=== PATIENT | female | born 1945 | race Caucasian/White ===

== ENCOUNTER → 2019-01-14 15:55 | Outpatient (CLI) | payer MEDICARE, OTHER, SELFPAY ==
--- NOTE | 2019-01-14 16:01 | CT_ITS ---
STUDY: CT ABDOMEN AND PELVIS WITH CONTRAST REASON FOR EXAM: Female, 73 years old. Hematuria. History of renal cysts. RADIATION DOSAGE (If Supplied By Facility): CTDIvol = ( 18.02 ) mGy, DLP = ( 1397.77 ) mGycm TECHNIQUE: Transaxial images were obtained from the dome of the diaphragm to the symphysis pubis without oral contrast. 100 IV Isovue 300 was administered. Sagittal and coronal images were reconstructed. Individualized dose optimization techniques were used for this CT. COMPARISON: None. FINDINGS: The visualized lung bases are unremarkable. The visualized portions of the heart are within normal limits. 6 mm subcapsular low density in the anterior superior left lobe of the liver (series 2 image 18, series 6 on image 24) is likely a cyst. The patent portal vein diameter is 10.5 mm. Normal gallbladder and extrahepatic biliary system. Normal spleen. Normal pancreas. Normal bilateral adrenal glands. Mildly exophytic 8 mm cortical cyst seen of the medial posterior margin of the midpole of the right kidney, and there is a 3.5 mm cortical cyst in the posterolateral lower pole. Rounded, hypodense 4 mm cortical cyst seen in the upper pole on series 6 on image 72. There is suggestion of a 3 mm cortical cyst at the lateral midpole on image 41. There is an exophytic 7.2 x 5.4 x 5.2 cm cortical cyst at the lower pole of the left kidney. Just above this is a well-defined 1.5 x 0.95 x 1.5 cm cortical cyst in the posterior mid to lower pole. No hydronephrosis. There is a moderate size hiatal hernia composed mostly of the fundus of the stomach. Normal small intestine. The cecum resides in the midline of the low abdomen/pelvis. Possible short, 9 mm gas distended, thin-walled appendix is identified in series 2 image 74, series 6 on image 42. Otherwise, normal colon. There is mild atherosclerotic calcification of the abdominal aorta and proximal iliac arteries, without a demonstrated aneurysm. Normal inferior vena cava. Normal retroperitoneum. Nearly empty urinary bladder. There is atrophy of the uterus. There is a small umbilical hernia containing fat. Defect in the fascia lateral to the left rectus muscle below the level of the iliac crests allows for a 5.15 x 3.4 x 1.25 cm hernia of fat and minimal fluid. There are multilevel degenerative changes of the visualized lumbar spine. The patient is positioned with an 11.5 degree dextroscoliosis centered at L3. Benign-appearing subcentimeter sclerotic density in the right superior pubic ramus. CT/Abdomen/Pelvis WITH Contrast IMPRESSION: 1. Bilateral renal cortical cysts. Allowing that the urinary bladder is nearly empty, no distinct source of hematuria is demonstrated. 2. Probable 6 mm cyst in the anterior superior left lobe of the liver. 3. Moderate size hiatal hernia. 4. Incidental note that the cecum and probable short, gas-filled appendix reside in the midline low abdomen. The bowel is otherwise unremarkable without sign of obstruction or suspicious mural thickening. 5. Mild aortoiliac atherosclerotic calcific plaquing. No demonstrated aneurysm. 6. Small, fat-containing umbilical hernia. Defect in the fascia lateral to the lower left rectus abdominous muscle also allows for a small hernia of fat and minimal fluid. Electronically Signed: Osman Anand MD at 12:53 EDT , Service support ,
[2019-01-14 16:15] LABS: CREATININE FINGERSTICK 0.8 mg/dL (0.55-1.02); EGFR FINGERSTICK > 60.0000 mL/min (>60)
== END ==
PROVIDERS: Family Provider Internal Medicine; PCP Internal Medicine; Referring Provider Nurse Practitioner Adult Health; Visit Provider Nurse Practitioner Adult Health
DX: Z01.812 Encounter for preprocedural laboratory examination (principal); R31.9 Hematuria, unspecified; N28.1 Cyst of kidney, acquired
CPT/HCPCS: 74177; Q9967

== ENCOUNTER → 2019-01-18 16:55 | Outpatient (CLI) | payer MEDICARE, OTHER, SELFPAY ==
[2019-01-18 17:12] LABS: Bacteria 0 SEEN /hpf (None Seen); Mucous, Urine 0 SEEN /hpf (<or=2+); Squamous Epithelial Cells - UA 0 SEEN /hpf (5-10); White Blood Cells 0 SEEN /hpf (0-5)
[2019-01-18 17:53] LABS: Color, Urine Yellow (Yellow); Glucose, Dipstick Normal (Normal); Ketone-Dipstick Negative (Negative); Leukocyte Esterase-Dipstick 25 /ul (Negative); Nitrite-Dipstick Negative (Negative); Occult Blood-Urine 150 /ul (Negative); Protein-Dipstick Negative (Negative); Specific Gravity, Urine 1.015 (1.002-1.030); Urine Bilirubin Dipstick Negative (Negative); Urine Clarity Clear (Clear); Urine Urobilinogen Normal (Normal); Urine pH 6.5 (5.0 - 8.0)
[2019-01-18 18:02] LABS: Red Blood Cells-Urine 0-5 SEEN /hpf (0-5)
== END ==
PROVIDERS: Family Provider Internal Medicine; PCP Internal Medicine; Referring Provider Nurse Practitioner Adult Health; Visit Provider Nurse Practitioner Adult Health
DX: R31.29 Other microscopic hematuria (principal)
CPT/HCPCS: 81001